=== PATIENT | female | born 2000 | race Caucasian/White ===

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

== ENCOUNTER 2018-03-25 16:25 | Emergency (ER) | payer BC, OTHER ==
--- NOTE | 2018-03-25 17:34 | EDM.PDOC ---
ED HPI GENERAL MEDICAL PROBLEM - General Chief Complaint: Lower Extremity Injury/Pain Stated Complaint: SPRAINED KNEE Time Seen by Provider: 03/25/18 17:34 Source of Information: Reports: Patient History Limitations: Reports: No Limitations - History of Present Illness INITIAL COMMENTS - FREE TEXT/NARRATIVE: HISTORY AND PHYSICAL: History of present illness: Patient is a 17-year-old female here with complaint of left knee pain. 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 Denies any injury to knee. She is able to walk on it but reports it is painful. She is icing and elevating and taking Motrin. She denies any fevers, chills, nausea, vomiting, abdominal pain. Review of systems: As per history of present illness and below otherwise all systems reviewed and negative. Past medical history: As per history of present illness and as reviewed below otherwise noncontributory. Surgical history: As per history of present illness and as reviewed below otherwise noncontributory. Social history: No reported history of drug or alcohol abuse. Family history: As per history of present illness and as reviewed below otherwise noncontributory. Physical exam: General: Patient sitting comfortably in no acute distress and nontoxic appearing HEENT: Atraumatic, normocephalic, pupils reactive, negative for conjunctival pallor or scleral icterus, mucous membranes moist, throat clear, neck supple, nontender, trachea midline. No meningeal signs. Lungs: Clear to auscultation, breath sounds equal bilaterally, chest nontender. Heart: S1S2, regular, negative for clicks, rubs, or overt murmur. Abdomen: Soft, nondistended, nontender. Negative for masses or hepatosplenomegaly. Negative for costovertebral tenderness. Pelvis: Stable nontender. Genitourinary: Deferred. Rectal: Deferred. Extremities: No obvious deformity or swelling of the left knee. Pain to palpation of the anterior knee. Pain with flexion and extension. Negative anterior and posterior drawer, negative varus and valgus stress. negative for cords or calf pain. Neurovascular unremarkable. Neuro: Awake, alert, oriented. Cranial nerves II through XII unremarkable. Cerebellum unremarkable. Motor and sensory unremarkable throughout. Exam nonfocal. Notes: Diagnostics: x-ray left knee Therapeutics: knee brace, crutches Prescriptions: None Impression: Left knee pain Plan: 1. Ice, elevate, and Motrin as needed. 2. Follow-up with orthopedics 3. Return to ED as needed as discussed Definitive disposition and diagnosis as appropriate pending reevaluation and review of above. Left Knee Pain Score (Numeric/FACES): 7 - Related Data Allergies Allergy/AdvReac Type Severity Reaction Status Date / Time human papillomavirus Allergy Seizure Verified 03/25/18 16:49 vaccine, quadr [From Gardasil (PF)] Home Meds: Home Meds . [No Known Home Meds] 06/15/14 [History] Past Medical History - Past Health History Medical/Surgical History: Denies Medical/Surgical History HEENT History: Reports: Impaired Vision Other HEENT History: wears glasses Neurological History: Reports: Migraines Social & Family History - Family History Cardiac: Reports: CAD Endocrine/Metabolic: Reports: Diabetes, Type I - Tobacco Use Smoking Status *Q: Never Smoker - Caffeine Use Caffeine Use: Reports: Coffee, Soda - Recreational Drug Use Recreational Drug Use: No Review of Systems - Review of Systems Review Of Systems: ROS reveals no pertinent complaints other than HPI. ED EXAM, GENERAL - Physical Exam Exam: See Below (see dictation) Course - Vital Signs Last Recorded V/S: Last Vital Signs Temp 37.6 C 03/25/18 16:43 Pulse 97 03/25/18 16:43 Resp 18 03/25/18 16:43 BP 130/80 03/25/18 16:43 Pulse Ox 97 03/25/18 16:43 - Orders/Labs/Meds Orders: Active Orders 24 hr Category Date Time Status Knee 1V or 2V Lt [CR] Stat Exams 03/25/18 17:22 Ordered Departure - Departure Time of Disposition: 18:25 Disposition: Home, Self-Care 01 Condition: Good Clinical Impression: Left knee pain - Discharge Information Referrals: PCP,None [Primary Care Provider] - Forms: ED Department Discharge Additional Instructions: The following information is given to patients seen in the emergency department who are being discharged to home. This information is to outline your options for follow-up care. We provide all patients seen in our emergency department with a follow-up referral. The need for follow-up, as well as the timing and circumstances, are variable depending upon the specifics of your emergency department visit. If you don't have a primary care physician on staff, we will provide you with a referral. We always advise you to contact your personal physician following an emergency department visit to inform them of the circumstance of the visit and for follow-up with them and/or the need for any referrals to a consulting specialist. The emergency department will also refer you to a specialist when appropriate. This referral assures that you have the opportunity for follow-up care with a specialist. All of these measure are taken in an effort to provide you with optimal care, which includes your follow-up. Under all circumstances we always encourage you to contact your private physician who remains a resource for coordinating your care. When calling for follow-up care, please make the office aware that this follow-up is from your recent emergency room visit. If for any reason you are refused follow-up, please contact the [facility] Emergency Department at and asked to speak to the emergency department charge nurse. [facility] [address], [address] [place] [address] 1. Ice, elevate, and Motrin as needed. 2. Follow-up with orthopedics 3. Return to ED as needed as discussed - My Orders Last 24 Hours: My Active Orders 03/25/18 17:22 Knee 1V or 2V Lt [CR] Stat - Assessment/Plan Last 24 Hours: My Active Orders 03/25/18 17:22 Knee 1V or 2V Lt [CR] Stat
--- NOTE | 2018-03-27 14:20 | CR ---
EXAM DATE: 03/25/18 PATIENT'S AGE: 17 Patient: ALEC RAE Facility: [place], [place] Site . Site : 2000 Study: XRay Knee Left [id number]/29/2018 6:19:56 PM Ordering Physician: Doctor Hurtado Final Report: Hurt knee. Findings: Two views of the left knee demonstrate normal alignment. No acute fractures seen. No effusion. IMPRESSION: 1. No acute fracture acute or osseous abnormality. Dictated by Melanie Bello MD @ Mar 25 2018 6:20PM (Electronic Signature) Report Signed by Proxy. [facility]
== END 2018-03-25 18:45 | disposition home or self-care (01) ==
LOC: MW.ED 16:25
DX: M25.562 Pain in left knee (principal); Z88.7 Allergy status to serum and vaccine
CPT/HCPCS: 73560-26-LT; 73560-LT; 99282; 99283

== ENCOUNTER 2024-08-16 19:22 | Emergency (ER) | payer BC | END 2024-08-16 20:37 | disposition home or self-care (01) | LOC: MW.ED 19:22 | DX: L95.9 Vasculitis limited to the skin, unspecified (principal); Z88.7 Allergy status to serum and vaccine; Z79.899 Other long term (current) drug therapy | CPT/HCPCS: 99282; 99283 ==